=== PATIENT | male | born 1980 | race African-American/Black ===

== ENCOUNTER 2017-05-23 23:54 | Emergency (ER) | payer MEDICAID, OTHER ==
[~2017-05-23] VITALS: Ht 175.3 cm; Wt 88.5 kg
[~2017-05-23 23:54] MED LIST: IBUPROFEN600 MG ORAL; NORCO 5-325 TA1 EACH ORAL
[2017-05-24] MEDS ORDERED: oxyCODONE HCL/Acetaminophen 5/325mg ORAL ONE (00:30)
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
[2017-05-24] MEDS ORDERED: NORCO 5-325 TA1 EACH ORAL (01:25)
[2017-05-24] MEDS ORDERED: IBUPROFEN600 MG ORAL (01:25)
[2017-05-24 01:43] VITALS: BP 132/82
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
== END 2017-05-24 01:40 | disposition home or self-care (01) ==
LOC: EMR 05-24 00:19
DX: S20.219A Contusion of unspecified front wall of thorax, initial encounter (principal); S60.222A Contusion of left hand, initial encounter; V43.52XA Car driver injured in collision with other type car in traffic accident, initial encounter; Y92.414 Local residential or business street as the place of occurrence of the external cause
CPT/HCPCS: 71010; 99284

== ENCOUNTER 2017-08-13 20:27 | Emergency (ER) | payer MEDICAID, OTHER ==
[~2017-08-13] VITALS: Ht 175.3 cm; Wt 93.4 kg
--- NOTE | 2017-08-13 21:10 | Emergency Room Report ---
History of Present Illness General Chief Complaint: Flu Like Symptoms Source: Patient, Medical Record Present Illness HPI This is a 28-year-old male with no past medical history. He presents with a fever chills, body aches, cough for the last one day. [place] short of breath from coughing. No nausea no vomiting. Also with sore throat. Similar symptom last month when he went to [facility] and was diagnosed with influenza. No swab was done however. He had chest x-ray done. He said this felt worse than that. Allergies: Coded Allergies: No Known Allergies (Unverified , 03/05/13) Patient History Past Medical History: see triage record, old chart reviewed Past Surgical History: none Pertinent Family History: none Social History: Reports: smoking Immunizations: other Reviewed Nursing Documentation: PMH: Agreed, PSxH: Agreed Nursing Documentation-PMH Past Medical History: No History, Except For Review of Systems Constitutional: Reports: chills, fever Eye: Denies: eye pain, blurred vision ENT: Reports: throat pain Respiratory: Reports: cough, shortness of breath Cardiovascular: Denies: chest pain, palpitations Gastrointestinal: Denies: abdominal pain, diarrhea, nausea, vomiting Musculoskeletal: Denies: back pain, joint pain Skin: Denies: rash Neurological: Denies: headache, numbness Endocrine: Denies: increased thirst, increased urine Hematologic/Lymphatic: Denies: easy bruising All Other Systems: negative except mentioned in HPI Physical Exam Vital Signs Date Time Temp Pulse Resp B/P (MAP) Pulse Ox O2 Delivery O2 Flow Rate FiO2 08/13/17 20:44 99.6 98 19 117/70 97 Room Air 99.7 vitals with low-grade fever Sp02 EP Interpretation: reviewed, normal General Appearance: well appearing, no apparent distress, alert Head: normocephalic, atraumatic Eyes: bilateral eye PERRL, bilateral eye EOMI ENT: hearing grossly normal, normal pharynx Neck: full range of motion, supple, no meningismus Respiratory: chest non-tender, decreased breath sounds, other - Coughing with inspiration Cardiovascular #1: regular rate, rhythm, no murmur Gastrointestinal: normal bowel sounds, non tender, no mass, no organomegaly, no bruit, non-distended Musculoskeletal: back normal, gait/station normal, normal range of motion Psychiatric: mood/affect normal Skin: warm/dry Medical Decision Making Diagnostic Impression: Primary Impression: Influenza-like symptoms ER Course Patient with a flulike illness. No evidence of bacterial infection. No evidence of pneumonia. Influenza swab negative. We'll discharge home. Last Vital Signs Date Time Temp Pulse Resp B/P (MAP) Pulse Ox O2 Delivery O2 Flow Rate FiO2 08/13/17 20:44 99.6 98 19 117/70 97 Room Air 99.7 Status: improved Disposition: HOME, SELF-CARE Condition: Stable Scripts Prednisone* (PREDNISONE*) 20 Mg Tablet 60 MG ORAL DAILY, #12 TAB Prov: CELINE GUILLAUME M.D. 08/13/17 Ibuprofen* (MOTRIN*) 600 Mg Tablet 600 MG ORAL THREE TIMES A DAY, #30 TAB 0 Refills Prov: CELINE GUILLAUME M.D. 08/13/17 Albuterol Sulfate* (ALBUTEROL SULFATE MDI*) 8.5 Gm Hfa.aer.ad 2 PUFF INH Q4H Y for cough/wheezing, #1 EA 0 Refills Prov: CELINE GUILLAUME M.D. 08/13/17 Additional Instructions: Rest. Increase fluid. Followup with your Dr. in 5-7 days. Return if symptom worsen. CELINE GUILLAUME M.D. Aug 13, 2017 21:10
[2017-08-13] MEDS ORDERED: Albuterol/Ipratropium 3ml neb HHN ONE (21:15)
[2017-08-13] MEDS ORDERED: ALBUTEROL SULF8.5 GM INH (22:39)
[2017-08-13] MEDS ORDERED: IBUPROFEN600 MG ORAL (22:39)
[2017-08-13] MEDS ORDERED: PREDNISONE20 MG ORAL (22:39)
[2017-08-13 22:45] VITALS: BP_SYST 117; BP_SYST 129; BP_DIAS 70; BP_DIAS 81
== END 2017-08-13 22:45 | disposition home or self-care (01) ==
LOC: EMR 21:00
DX: J11.1 Influenza due to unidentified influenza virus with other respiratory manifestations (principal); F17.200 Nicotine dependence, unspecified, uncomplicated
CPT/HCPCS: 86710; 94640; 94664; 99284; J7512; J7620

== ENCOUNTER 2019-07-25 18:37 | Emergency (ER) | payer MEDICAID ==
[~2019-07-25] VITALS: Ht 177.8 cm; Wt 81.6 kg
[~2019-07-25 18:37] MED LIST changes: +ALBUTEROL SULF8.5 GM INH; +PREDNISONE20 MG ORAL
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
--- NOTE | 2019-07-25 19:28 | NUR ---
ED Nurse Note: Report given to CANDIDA Botello. Plan of care endorsed.
--- NOTE | 2019-07-25 19:45 | Diagnostic Imaging Report ---
Indications: Headache Technique: Spiral acquisitions obtained through the brain. Angled axial and coronal 5 x 5 mm slices were reconstructed. Total dose length product 1260 mGycm. CTDI vol(s) 60 mGy. Dose reduction achieved using automated exposure control Comparison: 12/24/2008 Findings: No acute intracranial hemorrhage or edema. No mass effect nor midline shift. Normal stallworth-white differentiation. Normal size ventricles and extra axial CSF spaces. Visualized orbits are unremarkable. There is a left sphenoid sinus mucous retention cyst noted. The mastoids are clear. Previously demonstrated periorbital hematoma is no longer evident. Impression: Negative Minimal sinus disease incidentally noted This agrees with the preliminary interpretation provided overnight by [facility]. The CT scanner at [facility] is accredited by the [employer] and the scans are performed using protocols designed to limit radiation exposure to as low as reasonably achievable to attain images of sufficient resolution adequate for diagnostic evaluation.
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
[2019-07-25] MEDS ORDERED: IBUPROFEN600 MG ORAL (19:48)
[2019-07-25] MEDS ORDERED: VOLTAREN100 G1 TP (19:48)
[2019-07-25 20:00] VITALS: BP 125/85
--- NOTE | 2019-07-25 20:00 | NUR ---
ER DISCHARGE NOTE: Patient is cleared to be discharged per ERMD, pt is aox4, on room air, with stable vital signs. pt was given dc and prescription instructions, pt was able to verbalize understanding, pt id band removed without complications. pt is able to ambulate with steady gait. pt took all belongings.
--- NOTE | 2019-07-26 09:50 | Diagnostic Imaging Report ---
Indication: Pain, trauma Technique: 3 views of the right ankle Comparison: Findings: No acute fractures. No dislocations. Joint spaces are preserved. Normal mineralization. No radiopaque foreign body. Impression: Negative
== END 2019-07-25 20:00 | disposition home or self-care (01) ==
LOC: EDBD 18:37 → EMR 20:00
DX: S93.401A Sprain of unspecified ligament of right ankle, initial encounter (principal); S00.93XA Contusion of unspecified part of head, initial encounter; V03.99XA Pedestrian with other conveyance injured in collision with car, pick-up truck or van, unspecified whether traffic or nontraffic accident, initial encounter; Y92.9 Unspecified place or not applicable
CPT/HCPCS: 70450; 73610; Z7502; 99284

== ENCOUNTER 2019-10-28 14:34 | Emergency (ER) | payer MEDICAID ==
[~2019-10-28] VITALS: Ht 177.8 cm; Wt 97.1 kg
[~2019-10-28 14:34] MED LIST changes: +VOLTAREN100 G1 TP
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
[2019-10-28 14:52] VITALS: BP 128/66
--- NOTE | 2019-10-28 14:52 | NUR ---
ED Nurse Note: Dr. Eisenberg at bedside.
[2019-10-28] MEDS ORDERED: Tetanus/Diptheria/Pertussis IM ONE ×2 (14:58→15:15)
[2019-10-28] MEDS ORDERED: Augmentin 875mg Tab ORAL ONE (15:15)
[2019-10-28] MEDS ORDERED: Bacitracin Oint UD TOPIC ONE (15:15)
[2019-10-28] MEDS ORDERED: HYDROcodone/Acetamin 5/325 tab PO ONE (15:15)
--- NOTE | 2019-10-28 15:19 | NUR ---
ED Nurse Note: x-ray tech at bedside.
--- NOTE | 2019-10-28 15:39 | Diagnostic Imaging Report ---
EXAM: XR Right Hand Complete, 3 or More Views CLINICAL HISTORY: PAIN TECHNIQUE: Frontal, lateral and oblique views of the right hand. COMPARISON: Right hand radiographs on 03/05/2013 FINDINGS: Bones/joints: Nondisplaced fracture at the base of the right second metacarpal. Old fracture deformity of the right second metacarpal. Joint space is maintained. No bony lesion. Soft tissues: Mild dorsal soft tissue swelling. IMPRESSION: Nondisplaced fracture at the base of the right second metacarpal.
[2019-10-28] MEDS ORDERED: BACITRACIN15 GM TOPIC (15:45)
[2019-10-28] MEDS ORDERED: NORCO 5-325 TA1 EAC1 ORAL (15:45)
[2019-10-28] MEDS ORDERED: IBUPROFEN600 M1 ORAL (15:45)
[2019-10-28] MEDS ORDERED: AUGMENTIN 875-1 EAC1 ORAL (15:46)
[2019-10-28 15:54] VITALS: BP 124/68
--- NOTE | 2019-10-28 15:54 | NUR ---
ER DISCHARGE NOTE: Patient is cleared to be discharged per ERMD, pt is aox4, on room air, with stable vital signs. pt was given dc and prescription instructions, pt was able to verbalize understanding, pt id band removed. pt is able to ambulate with steady gait. pt took all belongings.
--- NOTE | 2019-10-28 15:55 | NUR ---
Volar splint has been applied to pts right upper ext.
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
== END 2019-10-28 15:54 | disposition home or self-care (01) ==
LOC: EMR 15:03
DX: S62.91XA Unspecified fracture of right hand, initial encounter for closed fracture (principal); Y04.1XXA Assault by human bite, initial encounter; Y92.9 Unspecified place or not applicable; Z23 Encounter for immunization
CPT/HCPCS: 29125; 73130; 90471; 90715; Z7502; 99283